=== PATIENT | male | born 1970 | race Caucasian/White ===

== ENCOUNTER 2021-08-27 11:44 | Outpatient (REF) | payer OTHER, SELFPAY ==
[2021-08-27 14:17] LABS: Prostate Specific Antigen 0.32 ng/mL (<0.05-4.0)
== END 2021-08-27 11:45 | disposition home or self-care (01) ==
LOC: HO.MANLDS 11:44
PROVIDERS: PCP Internal Medicine; Referring Provider Urology; Visit Provider Urology
DX: N40.1 Benign prostatic hyperplasia with lower urinary tract symptoms (principal); Z12.5 Encounter for screening for malignant neoplasm of prostate
CPT/HCPCS: 36415; 84153

== ENCOUNTER 2022-02-05 09:26 | Outpatient (REF) | payer OTHER, SELFPAY ==
[2022-02-05 11:14] LABS: MANUAL DIFF FLAG NO
[2022-02-05 11:28] LABS: Basophils Percent Auto 0.6 % (0-2); Eosinophils Absolute Auto 0.1 X10*3/uL (0.0-0.4); Eosinophils Percent Auto 1.4 % (0-4); Hematocrit 44.7 % (42.0-52.0); Hemoglobin 15.1 g/dl (14.0-18.0); Imm Gran Abs Auto 0.02 X10*3/uL (0.00-0.03); Imm Gran Pct Auto 0.6 % (0.0-0.4); Lymphocytes Absolute Auto 1.2 X10*3/uL (1.2-4.9); Lymphocytes Percent Auto 34.1 % (20-40); Mean Corpuscular HGB Conc 33.8 g/dl (31.0-36.0); Mean Corpuscular Hemoglobin 29.5 pg (27.0-33.0); Mean Corpuscular Volume 87.5 fL (80.0-98.0); Mean Platelet Volume 9.3 fL (9.4-12.4); Monocytes Absolute Auto 0.4 X10*3/uL (0.1-1.2); Monocytes Percent Auto 10.2 % (2-11); Neutrophils Absolute Auto 1.9 x10*3/uL (2.0-8.3); Neutrophils Percent Auto 53.1 % (45-73); Platelet Count 291 X10*3/uL (160-400); Red Blood Count 5.11 X10*6/uL (4.60-5.80); Red Cell Distribution Width 11.9 % (11.0-16.0); White Blood Count 3.6 X10*3/uL (4.8-10.8)
[2022-02-05 11:30] LABS: Estimated Average Glucose 103 mg/dL; Hemoglobin A1c % 5.2 %
[2022-02-05 14:42] LABS: Alanine Aminotransferase 26 U/L (0-40); Albumin Level 4.3 g/dL (3.5-5.0); Alkaline Phosphatase 66 U/L (39-117); Anion Gap 14 (12-20); Aspartate Amino Transferase 25 U/L (5-37); Bilirubin Total 0.6 mg/dL (0.0-1.0); Blood Urea Nitrogen 11 mg/dL (9-16); Calcium 9.5 mg/dL (8.4-10.2); Carbon Dioxide 27 mmol/L (22-29); Chloride 104 mmol/L (96-108); Cholesterol 178 mg/dL; Estimated Glomerular Filt Rate > 60; Glucose Random 102 mg/dL (60-115); HDL Cholesterol 55 mg/dL; LDL Cholesterol Calculated 107 mg/dl; Potassium 4.7 mmol/L (3.3-5.1); Sodium 140 mmol/L (135-145); Total Protein 6.8 g/dL (6.5-8.0); Triglycerides 81 mg/dL
[2022-02-05 15:06] LABS: Free T4 (Free Thyroxine) 1.05 ng/dL (0.71-1.85); Prostate Specific Antigen 0.32 ng/mL (<0.05-4.0); Thyroid Stimulating Hormone 2.66 uIU/mL (0.32-4.0); Vitamin D 25-OH Total 30.8 ng/mL (>30)
[2022-02-05 15:09] LABS: Folate 13.4 ng/mL (> or = 4.0); Vitamin B12 296 pg/mL (200-900)
== END 2022-02-05 09:27 | disposition home or self-care (01) ==
LOC: HO.MANLDS 09:26
PROVIDERS: Visit Provider Physician Assistant
DX: Z00.00 Encounter for general adult medical examination without abnormal findings (principal); Z12.5 Encounter for screening for malignant neoplasm of prostate
CPT/HCPCS: 36415; 80053; 80061; 82306; 82607; 82746; 83036; 84153; 84439; 84443; 85025

== ENCOUNTER 2022-12-31 08:23 | Outpatient (REF) | payer OTHER, SELFPAY ==
[2022-12-31 14:05] LABS: Prostate Specific Antigen 0.34 ng/mL (<0.05-4.0)
== END 2022-12-31 08:24 | disposition home or self-care (01) ==
LOC: HO.MANLDS 08:23
PROVIDERS: PCP Internal Medicine; Visit Provider Urology
DX: Z12.5 Encounter for screening for malignant neoplasm of prostate (principal); N40.1 Benign prostatic hyperplasia with lower urinary tract symptoms
CPT/HCPCS: 36415; 84153

== ENCOUNTER 2024-06-28 11:09 | Outpatient (REF) | payer OTHER, SELFPAY ==
--- OUTSIDE RECORDS SUMMARY | 2024-06-28 14:00 | XMS_ITS | Data Portability ---
Author Organization [facility] Home Service Address [address] [place] [address] Assessment Encounter Date Assessment Date Assessment LastModified by Organization Details LastModified Time 01/09/2021 01/09/20[place] [id number] [place] [id number] (HEALTH INSURANCE SPECIALIST) : MDM LOW MUST MEET 2 OF 3 ELEMENTS: PROBLEMS, DATA OR RISK ELEMENT 1: PROBLEMS ADDRESSED (LOW): 2 OR MORE SELF-LIMITED OR MINOR PROBLEMS OR 1 STABLE CHRONIC ILLNESS OR 1 ACUTE UNCOMPLICATED ILLNESS OR INJURY ELEMENT 2: DATA TO BE REVISED AND ANALYZED (LOW) MUST MEET 1 OF 2 CATEGORIES: CATEGORY 1. REVIEW OF PRIOR EXTERNAL NOTES/RESULTS, ORDERING OF TEST(S) CATEGORY 2. ASSESSMENT REQUIRING INDEPENDENT HISTORIAN(S) INCLUDE WHO THE HISTORIAN IS AND RELATION TO PT AND WHY PT IS UNABLE TO GIVE COMPLETE HISTORY ELEMENT 3: RISK (LOW) RISK OF COMPLICATIONS AND/OR MORBIDITY OR MORTALITY OF PATIENT MANAGEMENT PROVIDER MUST THOROUGHLY DOCUMENT ALL OF THE ELEMENTS COVERED Not available 01/09/2021 14:12:44 Plan of Treatment Reminders Order Date Submit Date Provider Last Modified By Organization Details Last Modified Time Details Appointments None recorde d. Lab CMP, serum or plasma 2021 [facility], [address] [place] [address], [place], [address], 12:13:08 lipid panel, blood 2021 [email or web address] [place] [address] Laboratory, [address] [place] [address], [place], [address], 08:31:32 CBC w/ auto diff 2021 [facility], [address] [place] [address], [address], 09:20:29 PSA, serum or plasma 2021 [facility], [address] [place] [address], [address], 09:20:28 vitamin D, 25-hydr oxy, total, serum 2021 [facility], [address] [place] [address], [address], 09:20:28 HbA1c (hemogl obin A1c), blood 2021 [facility], [address] [place] [address], [address], 09:20:28 TSH + free T4, serum 2021 [facility], [address] [place] [address], [address], 09:20:29 vitamin B12 + folate, serum or blood 2021 [facility], [address] [place] [address], [address], 09:20:29 CBC w/ auto diff 2019 020 [facility], [address] [place] [address], [address], 0 14:05:50 vitamin B12 + folate, serum or blood 2019 020 [facility], [address] [place] [address], [address], 0 14:05:49 iron + total iron-bi nding capacit y (TIBC), serum 2019 020 [facility], [address] [place] [address], [place], [address], 0 14:05:49 lipid panel, blood 2019 020 [email or web address] 10 [facility], [address] [facility], [place], [address], 0 08:33:10 CMP, serum or plasma 2019 020 [email or web address] 10 [facility], [address] [place] [address], [place], [address], 0 08:33:10 CMP, serum or plasma 2017 018 [email or web address] Not available 8 07:07:46 lipid panel, blood 2017 018 [email or web address] Not available 8 07:07:46 Referral ENT referra l 2019 020 [facility], [address] [place], [address], 0 08:24:08 orthope dic referra l - pain in left shoulde r recurs every time he tries to resume chest exercis es. has h/o left shoulde r pain x 2 years with normal shoulde r xray in the past. 2017 018 [facility] (Leonid Olson), [address], [place], [address], 8 10:21:54 gastroe nterolo gist referra l 2017 018 [facility] , [address] [place] [address], [address], 8 08:42:12 Procedures None recorde d. Surgeries None recorde d. Imaging None recorde d. Medication Orders None recorde d. Patient TargetsNo targets recorded. Patient Instructions Encounter Date Encounter Id Patient Instructions Last Modified By Organization Details Last Modified Time 01/11/2018 [id number] benign prostatic hyperplasia: care instructions Not available 01/11/2018 09:30:08 03/29/2018 [id number] benign prostatic hyperplasia: care instructions Not available 03/29/2018 11:57:12 01/09/2021 [id number] benign prostatic hyperplasia: care instructions Not available 01/09/2021 14:13:24 Reason for Referral [employer] Referral for Peptic ulcer Referring Physician: Mary Ellen Lopez, Internal Medicine, Encounter Date: 01/11/2018 Orthopedic Referral for Pain of left shoulder joint pain in left shoulder recurs every time he tries to resume chest exercises. has h/o left shoulder pain x 2 years with normal shoulder xray in the past. Referring Physician: [facility], Encounter Date: 03/29/2018 ENT Referral for Bilateral t innitus bilateral tinnitus, constant, more so in the right ear Referring Physician: Derek Saxena, Internal Medicine, Encounter Date: 09/21/2019 Results Created Date Observation Date Name Description Value Unit Range Abnormal Flag Note LastModifiedBy Organization Detail LastModifiedTime 01/10/20 18 01/09/2018 US, abdom en No observ ation record ed. [facility] [address] [facility], [place], [address], 03/29/2018 14:01:49 Result Notes None recorded. Problems Name Problem SNOMED Code Status Onset Date Resolution Date Notes Provider Name and Address Organization Details Recorded Time Tear of meniscus of knee 162461220 Active 2017 [facility] 8 14:51:34 Benign prostatic hyperplasia 542442115 Active 2017 [facility] 8 14:51:43 Problem Notes None recorded. Procedures Surgical History None recorded. Imaging Results Imaging Date Name Status LastModified by Organiz ation Details LastModified Time 01/09/2018 US, abdomen completed [email or web address] [address], [place], [address], 03/29/2018 14:01:49 Procedure Notes None recorded. Medical Equipment None Reported. Allergies No known drug allergies Medications Name Sig Start Date Stop Date Status Note LastModified by Organization Details LastModified Time azithromycin 250 mg tablet TAKE 2 TABLETS (500 MG) BY ORAL ROUTE ONCE DAILY FOR 1 DAY THEN 1 TABLET (250 MG) BY ORAL ROUTE ONCE DAILY FOR 4 DAYS 01/09 completed Not Available Not Available Not Available sulfamethoxa zole 800 mg-trimethop rim 160 mg tablet TAKE 1 TABLET BY MOUTH TWICE DAILY 02/05 completed Not Available Not Available Not Available omeprazole 40 mg capsule,merlene yed release 03/23 completed Not Available Not Available Not Available tamsulosin 0.4 mg capsule Take 1 capsule every day by oral route for 90 days. active Not Available Not Available No t Available Vitals Date Recorded Body height Body mass index (BMI) Body weight Heart rate Oxygen saturation Oxygen saturation in Arterial blood by Pulse oximetry Systolic blood pressure Diastolic blood pressure Provider Name and Address Organization Details Last Updated DateTime 0 184.15 cm 22.2 kg/m2 27674.2 6 g 71 /min 97 % 97 % 112 mm[Hg] 60 mm[Hg] Eduarda Reynolds [facility] 0 16:06:57 Date Recorded Body height Body mass index (BMI) Body weight Heart rate Oxygen saturation Oxygen saturation in Arterial blood by Pulse oximetry Systolic blood pressure Diastolic blood pressure Provider Name and Address Organization Details Last Updated DateTime 1 184.15 cm 22.9 kg/m2 27815.9 4 g 61 /min 98 % 98 % 122 mm[Hg] 76 mm[Hg] Eduarda Reynolds [facility] 1 13:48:45 Date Recorded Body height Body mass index (BMI) Body weight Oxygen saturation Oxygen saturation in Arterial blood by Pulse oximetry Heart rate Systolic blood pressure Diastolic blood pressure Provider Name and Address Organization Details Last Updated DateTime 2 184.15 cm 23.3 kg/m2 08711.0 7 g 98 % 98 % 67 /min 100 mm[Hg] 60 mm[Hg] Daisy Lam [facility] 2 09:03:15 Date Recorded Body weight Body mass index (BMI) Body height Heart rate Oxygen saturation Oxygen saturation in Arterial blood by Pulse oximetry Systolic blood pressure Diastolic blood pressure Provider Name and Address Organization Details Last Updated DateTime 8 34411.5 2 g 22.5 kg/m2 184.15 cm 66 /min 97 % 97 % 106 mm[Hg] 64 mm[Hg] Pratibha Toledo [facility] 8 09:08:23 Date Recorded Body height Body mass index (BMI) Body weight Heart rate Oxygen saturation Oxygen saturation in Arterial blood by Pulse oximetry Systolic blood pressure Diastolic blood pressure Provider Name and Address Organization Details Last Updated DateTime 8 184.15 cm 22.6 kg/m2 88721.7 5 g 62 /min 97 % 97 % 120 mm[Hg] 70 mm[Hg] Pratibha Toledo [facility] 8 11:36:38 Social History Question Answer Notes LastModified by [employer] ion Details LastModified Time Tobacco Smoking Status Never Smoker Not Available [facility] 02/28/2020 03:36:23 What Was The Date Of Your Most Recent Tobacco Screening? 02/05/2022 [email or web address] Information not available 02/05/2022 Sex: Unknown Functional Status None recorded. Mental Status None recorded. Family History Nothing Reported. Medical History Condition Response Coronary Artery Disease N Other N Gout N Blood Diseases N Kidney Stones N Breast Cancer N Blood Transfusion N Lung Disease N Depression N COPD N Defects or Inherited Disease N Anxiety Disorder N Muscle, Joint, or Bone Problems N Obesity N Vision or Eye Problems N Arthritis N Infertility N Polyps N Mental Disorder N Cancer N Stroke N Varicosities N Endometriosis N Bladder or Kidney Problems N High Cholesterol N Liver Disease N Fibromyalgia N Headaches N Kidney Disease N Allergies/Hayfever N Heart Problems N Hospitalizations N Thyroid Problems N GI Problems N Eating Disorder N Skin Problems N Anemia N MRSA exposure N Constipation N Mental Illness N Diabetes N Ovarian Cancer N Seizures/Epilepsy N Tuberculosis N Congestive Heart Failure (CHF) N Eczema N Abuse/Domestic Violence N Diverticulitis N Asthma N Reflux/GERD N Hepatitis N Heart Disease N Pulmonary Embolism N Hypertension N Chicken Pox N Autism Spectrum Disorder (ASD) N Osteoporosis N Past Encounters Encounter ID Performer Location Encounter Start Date Encounter Closed Date Diagnosis/Indication Diagnosis SNOMED-CT Code Diagnosis ICD10 Code Diagnosis Note [id number] July [facility] [address] [facility],[place] [address] 01/11/2018 09:00:47 01/11/2018 10:31:31 Peptic ulcer 91607444 K27.9 more likely gastritis given lack of triggers Benign pro static hyperplasia 247520521 N40.0 Adult heal th examination 026928092 Z00.00 [id number] July [facility] [address] [facility] [address] [place] [address] 03/29/2018 11:28:43 03/29/2018 13:39:19 Adult health examination 927880394 Z00.00 labs all done and normal Active or passive immunization 764018928 Z23 thinks he may have had tetanus within the last 10 years Benign pro static hyperplasia 082117827 N40.0 sees uro Peptic ulcer 41328178 K2 7.9 seeing GI for this Pain of le ft shoulder joint 9456787227 0684181 M25.512 [id number] EL[facility]NA NEW[facility] [address] [facility],[place] [address] 09/21/2019 15:51:39 09/21/2019 16:36:46 Adult health examination 070327164 Z00.00 Active or passive immunization 118132561 Z23 pharmacies not doing routine immunizati ons now Bilateral tinnitus 82728 42633 102 H93.13 [id number] Derek Saxena, [facility] [address] [facility],[place] [address] 01/09/2021 13:43:52 01/09/2021 14:50:33 Benign prostatic hyperplasia 552325147 N40.0 [id number] ELIANA NEWMAN [facility] [address] [facility],[place] [address] 02/05/2022 08:51:36 02/05/2022 10:24:33 Active or passive immunization 765908752 Z23 up to date Adult heal th examination 807538325 Z00.00 BP is excellentw ill do comprehens linda panel for the patient Health Concerns Section Related Observation LastModified by Organization Detai ls LastModified Time None Recorded Concern Status LastModified by Organization Details LastModified Time None Recorded Advance Directives Directive None Recorded Payers Encounter Date Sequence Insurance Name Policy Number Policy Garner Covered Member ID Garner Member ID Guarantor Name 01/11/2018 1 [facility] [employer] - [employer] [id number] 1 [place] [id number] [place] 03/29/2018 1 [facility] [employer] [id number] 1 [place] [id number] [place] 09/21/2019 1 [facility] [employer] [id number] 1 [place] [id number] [place] 01/09/2021 1 [facility] [employer] - [employer] [id number] 1 [place] [id number] [place] 02/05/2022 1 [facility] ELIANA WESTBROOK (PPO) [place] [id number] [place] Notes Date Note Type Note Provider Name a nd Address Organization Details Recorded Time 8 text/html went to ER 01/09/18 for abdominal pain. acs work up negative, labs normal. believed epigastric pain likely r/t gastritis vs PUD. he was started on omeprazole and as of today he is feeling somewhat better, but not back ot normal. of note, he also sees a urologist for BPH. 12 system ROS negative except where noted above- denies: chest pain, palpitations, sob, ankle swelling, visual problems, hearing problems, muscle aches or pains, numbness or tingling extremities, abdominal pain, bowel issues, bladder issues, sexual dysfunction, abnormal bleeding, sx of sinus/respiratory infection , headaches, dizziness/lightheaded ness, rashes, or nail changes. Mary Ellen DANE Lopez [address] [place] [address], [place], [address], [facility] 01/11/2018 09:34:56 8 text/html Annual WellnessReported bypatient.Diet and Nutrition:healthy diet Fracture Risk:no recent explained fracture Physical Activity:exercises on a regular basis Additional Lifestyle Factors:no tobacco use; no alcohol intake Depression Risk:no history of depression Hearing:no loss of hearing Vision:worse with distance(wears contact lenses) c/o left should pain started years ago went to ortho dx'd with tendinitis, but continues to have discomfort LAURIE M[employer]CONSTANCE [address] [place], [address], [facility] 03/29/2018 11:58:03 0 text/html Annual WellnessReported bypatient.Diet and Nutrition:healthy diet; discussed vitamin and supplement use; discussed portion control; discussed maintaining calcium balance; discussed diet improvement Fracture Risk:no recent explained fracture; no sudden unexplained fractures; no previous musculoskeletal injuries;history of fractures(arm) Physical Activity:exercises on a regular basis; recent increase in physical activity; good physical condition; rides his bike, walks, yard work rode his bike to the office Additional Lifestyle Factors:no tobacco use; drinks alcohol (mild-moderate) (very little) Depression Risk:never feels sad, empty, or tearful; no loss of interest in activities; no significant changes in weight; no sleep disturbances or insomnia; no agitation; no loss of energy; no feelings of worthlessness or guilt; no thoughts of suicide; no history of depression; no history of mood disorders Hearing:no loss of hearing; tinnitus in bilateral ear right ear more affected has been exposed to power equipment for many ears, listen to loud music came on suddenly four to five months ago ELIANA NEWMNA [address] [place] [address], [phone], [facility] 09/21/2019 16:21:59 1 text/html here to discuss the covid vaccinelong detailed discussions Derek Saxena DO [address] [place], [address], [facility] 01/09/2021 14:14:03 2 text/html Annual WellnessReported bypatient.Diet and Nutrition:healthy diet; discussed vitamin and supplement use; discussed portion control; discussed maintaining calcium balance; discussed diet improvement Fracture Risk:no history of fractures; no recent explained fracture; no sudden unexplained fractures; no previous musculoskeletal injuries Physical Activity:exercises on a regular basis; recent increase in physical activity; good physical condition; discussed weightbearing activities; discussed exercise habits; moderate activity level Additional Lifestyle Factors:no tobacco use; drinks alcohol (mild-moderate) (rarely) Depression Risk:never feels sad, empty, or tearful; no loss of interest in activities; no significant changes in weight; no sleep disturbances or insomnia; no agitation; no loss of energy; no feelings of worthlessness or guilt; no thoughts of suicide; no history of depression; no history of mood disorders Hearing:no loss of hearing Vision:no vision problems ELIANA NEWMAN [address] [place] [address], [phone], [facility] 02/05/2022 09:23:36
[2024-06-28 14:52] LABS: Prostate Specific Antigen 0.43 ng/mL (<0.05-4.0)
== END 2024-06-28 11:10 | disposition home or self-care (01) ==
LOC: HO.MANLDS 11:09
PROVIDERS: Visit Provider Internal Medicine
DX: N40.1 Benign prostatic hyperplasia with lower urinary tract symptoms (principal); N13.8 Other obstructive and reflux uropathy; Z12.5 Encounter for screening for malignant neoplasm of prostate
CPT/HCPCS: 36415; 84153